=== PATIENT | male | born 1970 | race African-American/Black ===

== ENCOUNTER 2021-12-06 09:25 | Inpatient (IN) | payer OTHER ==
[2021-12-06 10:20] VITALS: BMI 25.7
[2021-12-06] MEDS ORDERED: IBUPROFEN 600 MG TABLET (FP) PO PRN (11:10)
[2021-12-06] MEDS ORDERED: DICYCLOMINE HCL 10 MG CAPSULE PO PRN (11:10)
[2021-12-06] MEDS ORDERED: NICOTINE 10 MG CARTRIDGE (INHALER) IH PRN (11:10)
[2021-12-06] MEDS ORDERED: MAGNESIUM HYDROX 2400MG/30ML ORAL SUSPENSION 30 ML CUP PO PRN (11:10)
[2021-12-06] MEDS ORDERED: ACETAMINOPHEN 325 MG TABLET (FP) PO PRN ×2 (11:10)
[2021-12-06] MEDS ORDERED: BUPRENORPHINE HCL 150 MCG, BUPRENORPHINE HCL 75 MCG BC ONE (11:10)
[2021-12-06] MEDS ORDERED: BENZOCAINE/MENTHOL (CHLORASEPTIC ) LOZENGE MM PRN (11:10)
[2021-12-06] MEDS ORDERED: LOPERAMIDE HCL 2 MG CAPSULE PO PRN (11:10)
[2021-12-06] MEDS ORDERED: MAG HYDROX/AL HYDROX/SIMETH 30 ML UNIT-DOSE CUP PO PRN (11:10)
[2021-12-06] MEDS ORDERED: NALOXONE HCL (KLOXXADO) 8 MG SPRAY NS PRN (11:10)
[2021-12-06] MEDS ORDERED: BISMUTH SUBSALICYLATE 262 MG/15 ML BTL PO PRN (11:10)
[2021-12-06] MEDS ORDERED: BUPRENORPHINE HCL 150 MCG, BUPRENORPHINE HCL 75 MCG BC PRN (11:10)
[2021-12-06] MEDS ORDERED: cloNIDine HCL 0.1 MG TABLET PO ONE (11:10)
[2021-12-06] MEDS ORDERED: ONDANSETRON *ODT* 4 MG TABLET SL PRN (11:10)
[2021-12-06] MEDS ORDERED: MAGNESIUM CITRATE 300 ML BOTTLE PO PRN (11:10)
[2021-12-06] MEDS ORDERED: IBUPROFEN 400 MG TABLET (FP) PO PRN (11:10)
[2021-12-06] MEDS ORDERED: BUPRENORPHINE HCL 150 MCG FILM BC ONE (13:06)
[2021-12-06] MEDS ORDERED: BUPRENORPHINE HCL 75 MCG FILM BC ONE (13:07)
[2021-12-06] MEDS: hydrOXYzine PAMOATE 25 MG CAPSULE (FP) PO SCH ×3 (13:11→22:50)
[2021-12-06] MEDS: METHOCARBAMOL 500 MG TABLET PO PRN (13:11)
[2021-12-06] MEDS: NICOTINE 21 MG/24 HOURS TOPICAL PATCH TD SCH (13:12)
[2021-12-06] MEDS: PRENATAL VITAMINS W/ FOLIC ACID TABLET (FP) PO SCH (13:18)
[2021-12-06 15:13] LABS: HEMATOCRIT 42.5 % (35.4-49); HEMOGLOBIN 14.1 GM/dL (11.7-16.9); MCH 27.9 pg (25.7-33.7); MCHC 33.2 g/dl (32.0-35.9); MEAN CELL VOLUME 84.2 fl (80-96); MEAN PLT VOLUME 8.4 fl (7.5-11.1); PLATELET COUNT 273 10^3/uL (134-434); RBC 5.06 M/mm3 (4.00-5.60); RDW 15.4 % (11.9-15.9); WHITE BLOOD COUNT 5.8 K/mm3 (4.0-10.0)
[2021-12-06 15:22] LABS: CALCIUM 9.4 mg/dL (8.5-10.1)
[2021-12-06 15:23] LABS: BLOOD UREA NITROGEN 10.2 mg/dL (7-18)
[2021-12-06 15:26] LABS: CREATININE 0.7 mg/dL (0.55-1.3)
[2021-12-06 15:28] LABS: BILIRUBIN,TOTAL 0.4 mg/dL (0.2-1)
[2021-12-06] MEDS: THIAMINE HCL 100 MG TABLET (FP) PO SCH (22:50)
[2021-12-06] MEDS: cloNIDine HCL 0.1 MG TABLET PO PRN (22:50)
[2021-12-06] MEDS: MELATONIN 5 MG TABLETS PO SCH (22:51)
[2021-12-07] MEDS ORDERED: BUPRENORPHINE HCL 150 MCG, BUPRENORPHINE HCL 75 MCG BC PRN
[2021-12-07] MEDS ORDERED: BUPRENORPHINE HCL 75 MCG FILM BC ONE ×2 (04:19→17:00)
[2021-12-07] MEDS ORDERED: BUPRENORPHINE HCL 150 MCG FILM BC ONE ×2 (04:19→16:58)
[2021-12-07] MEDS: cloNIDine HCL 0.1 MG TABLET PO PRN ×2 (06:30→22:42)
[2021-12-07] MEDS: BUPRENORPHINE HCL 150 MCG, BUPRENORPHINE HCL 75 MCG BC SCH ×2 (06:31→18:37)
[2021-12-07] MEDS: hydrOXYzine PAMOATE 25 MG CAPSULE (FP) PO SCH ×5 (06:34→22:42)
[2021-12-07] MEDS: diazePAM 5 MG TABLET PO PRN ×2 (07:42→18:36)
[2021-12-07] MEDS: PRENATAL VITAMINS W/ FOLIC ACID TABLET (FP) PO SCH (11:10)
[2021-12-07] MEDS: METHOCARBAMOL 500 MG TABLET PO PRN ×2 (11:10→22:42)
[2021-12-07] MEDS: NICOTINE 21 MG/24 HOURS TOPICAL PATCH TD SCH (11:13)
[2021-12-07 22:04] VITALS: RESP 18
[2021-12-07] MEDS: THIAMINE HCL 100 MG TABLET (FP) PO SCH (22:42)
[2021-12-07] MEDS: MELATONIN 5 MG TABLETS PO SCH (22:42)
[2021-12-08] MEDS: diazePAM 5 MG TABLET PO PRN (00:57)
[2021-12-08 01:51] VITALS: BP 157/100; PULSE 83; TEMP 97.3
[2021-12-08] MEDS ORDERED: BUPRENORPHINE HCL 450 MCG FILM BC SCH (06:00)
[2021-12-09] MEDS ORDERED: BUPRENORPHINE/NALOXONE 4 MG/1 MG FILM PACKET SL SCH (06:00)
[2021-12-10] MEDS ORDERED: BUPRENORPHINE/NALOXONE 8 MG/2 MG FILM PACKET SL ONE (06:00)
== END 2021-12-08 01:45 | disposition left against medical advice (07) | DRG 770 ==
LOC: YASAS 09:25 → Y6N 12:22
PROVIDERS: ADMIT Allergy & Immunology; ATTEND Surgery
PROC: HZ2ZZZZ Detoxification Services for Substance Abuse Treatment (ICD-10-PCS; principal; 2021-12-06)
DX: F11.23 Opioid dependence with withdrawal (principal); F17.210 Nicotine dependence, cigarettes, uncomplicated; E78.5 Hyperlipidemia, unspecified; I73.9 Peripheral vascular disease, unspecified; Z89.612 Acquired absence of left leg above knee; Z59.02 Unsheltered homelessness
CPT/HCPCS: 36415; 80053; 85027; 86780; 93005; 93010; C9803-CS; J0735; U0003; U0005